=== PATIENT | male | born 1985 | race Two or more races ===

== ENCOUNTER 2020-07-29 08:48 | Emergency (ER) | payer SELFPAY ==
[~2020-07-29] VITALS: Ht 170.2 cm; Wt 81.0 kg
[2020-07-29 08:52] VITALS: BP 133/81
--- NOTE | 2020-07-29 09:02 | ED.ADGEN ---
General Adult EDM: Chief Complaint: FOREIGNBODY EAR HPI: HPI: Patient is a 34 year old male coming in for concern for foreign body in his left ear. Patient was cleaning his ear when he was using a Q-tip and when he took it out the cotton end of the Q-tip was no longer attached. Patient states he does get out tweezers but was afraid he injured his ear canal and that there was prior to the left. States he still feels a foreign body sensation. No other complaints, no change from air. Review of Systems: Review of Systems: All other systems within normal limits except for as noted in the HPI Physical Exam: PE: Constitutional: Well developed, well nourished, no acute distress, non-toxic appearance. [] HENT: Normocephalic, atraumatic, bilateral external ears normal, left ear canal and TM normal, no visualized foreign bodies. Nose normal. [] Eyes: PERRLA, conjunctiva normal, no discharge. [] Neck: No rigidity, supple, no stridor. [] Cardiovascular: Regular rate and rhythm, brisk cap refill [] Lungs & Thorax: Non labored symmetric respirations, no tachypnea or respiratory distress [] Abdomen: Soft, nondistended. Skin: Warm, dry, no erythema, no rash. [] Back: Unremarkable Extremities: No deformities, range of motion grossly intact, no lower extremity edema [] Neurologic: Alert and oriented X 3, no focal deficits noted. [] Psychologic: Affect normal, judgement normal, mood normal. [] EKG: EKG: [] Heart Score: C/O Chest Pain: No Risk Factors: Risk Factors: DM, Current or recent (<one month) smoker, HTN, HLP, family his tory of CAD, obesity. Risk Scores: Score 0 - 3: 2.5% MACE over next 6 weeks - Discharge Home Score 4 - 6: 20.3% MACE over next 6 weeks - Admit for Clinical Observation Score 7 - 10: 72.7% MACE over next 6 weeks - Early Invasive Strategies Radiology/Procedures: Radiology/Procedures: [] Course & Med Decision Making: Course & Med Decision Making Pertinent Labs and Imaging studies reviewed. (See chart for details) [] Dragon Disclaimer: Dragon Disclaimer: This electronic medical record was generated, in whole or in part, using a voice recognition dictation system. Departure Departure Impression: Primary Impression: Foreign body sensation in left ear canal Disposition: 01 DC HOME SELF CARE/HOMELESS Condition: STABLE Patient Instructions: Ear Foreign Body FRAN CISNEROS MD Jul 29, 2020 09:02
== END 2020-07-29 09:09 | disposition home or self-care (01) ==
LOC: ER 08:48
DX: T16.2XXA Foreign body in left ear, initial encounter (principal); R20.2 Paresthesia of skin; X58.XXXA Exposure to other specified factors, initial encounter; Y93.89 Activity, other specified; Y92.89 Other specified places as the place of occurrence of the external cause; Y99.8 Other external cause status
CPT/HCPCS: 99281